=== PATIENT | male | born 1965 | race Caucasian/White ===

== ENCOUNTER 2017-11-18 12:31 | Emergency (ER) | payer SELFPAY ==
[2017-11-18] MEDS ORDERED: Ketorolac Tromethamine 60 MG/2 ML VIAL ONE (13:28)
[2017-11-18 13:32] LABS: Bilirubin Small (Negative); Blood, Urine Negative (Negative); Clarity CLEAR (Clear); Glucose, Urine (Dipstick) Negative (Negative); Leukocyte Small (Negative); Nitrite Negative (Negative); Protein, Urine (Dipstick) Trace mg/dL (Neg-Trace); Specific Gravity, Urine 1.033 (1.002-1.036); pH, Urine 5.5 (5.0-9.0)
[2017-11-18 13:34] LABS: Bacteria/HPF None Seen HPF (None Seen); Hyaline Casts/LPF 0-3 HYALINE CAST LPF (0-3 Hyaline); Pathc Cast-AUWi Flag 0.14 (0-2.49); RBC/HPF 0-3 HPF (0-3); Squamous Epithelial None Seen HPF (0-3); WBC/HPF 0-3 HPF (0-3)
[2017-11-18 13:46] LABS: Crystals/HPF 2+ CA OXALATE HPF (Negative)
== END 2017-11-18 13:52 | disposition home or self-care (01) ==
LOC: ERS 12:31
DX: M54.5 Low back pain (principal); I10 Essential (primary) hypertension
CPT/HCPCS: 81003; 81015; 96372; J1885

== ENCOUNTER 2019-05-13 17:58 | Emergency (ER) | payer SELFPAY | END 2019-05-13 19:13 | disposition left against medical advice (07) | LOC: ERS 17:58 | DX: Z53.21 Procedure and treatment not carried out due to patient leaving prior to being seen by health care provider (principal) ==

== ENCOUNTER 2019-10-04 18:34 | Observation (INO) | payer SELFPAY ==
[2019-10-04 19:54] LABS: #Basophils 0.1 thou/uL (0.0-0.2); #Eosinphils 0.1 thou/uL (0.0-0.7); #Lymphocytes 1.7 thou/uL (1.20-3.40); #Monocytes 0.5 thou/uL (0.11-0.59); #Neutrophils 4.8 thou/uL (1.40-6.50); %Eosinophils 1.6 % (0.0-10.0); %Lymphocytes 23.4 % (21.0-51.0); %Monocytes 6.5 % (0.0-10.0); %Neutrophils 67.5 % (42.0-75.0); Hemoglobin 15.7 g/dL (14.0-18.0); Mean Corpuscular HGB CONC 34.5 g/dL (32.0-36.0); Mean Corpuscular Hemoglobin 31.8 pg (27.0-31.0); Mean Corpuscular Volume 92.2 fL (78.0-98.0); Mean Platelet Volume 8.9 fL (7.4-10.4); Platelet Count 204 thou/uL (130-400); RBC Distribution Width 12.9 % (11.5-14.5); Red Blood Cell (RBC) Count 4.93 mill/uL (4.70-6.10); White Blood Cell (WBC) Count 7.2 thou/uL (4.8-10.8)
[2019-10-04 20:00] LABS: PTT 27.9 sec (22.9-36.1); Prothrombin Time 13.6 sec (12.0-14.7)
[2019-10-04] MEDS ORDERED: Aspirin Chewable 81 MG TAB ONE ×2 (20:10)
[2019-10-04 20:17] LABS: ALT (SGPT) 50 U/L (8-55); AST (SGOT) 37 U/L (5-34); Albumin 3.8 g/dL (3.5-5.0); Alkaline Phosphatase 92 U/L (40-110); Anion Gap 12 mmol/L (10-20); BUN (Urea Nitrogen) 14 mg/dL (8.4-25.7); Bilirubin, Total 1.2 mg/dL (0.2-1.2); CK (CPK) 89 U/L (30-200); Calc. Creatinine Clearance 0 mL/min (70-130); Carbon Dioxide 22 mmol/L (22-29); Chloride 111 mmol/L (98-107); Estimated GFR-MDRD 74; Globulin 3.5 g/dL (2.4-3.5); Glucose 90 mg/dL (70-105); Potassium 4.3 mmol/L (3.5-5.1); Protein, Total 7.3 g/dL (6.0-8.3); Sodium 141 mmol/L (136-145)
[2019-10-04] MEDS ORDERED: Acetaminophen 650 MG Suppository PR PRN (21:56)
[2019-10-04] MEDS ORDERED: Acetaminophen 325 MG TAB PO PRN (21:56)
[2019-10-04] MEDS ORDERED: Ondansetron ODT 4 MG TAB PO PRN (21:56)
[2019-10-04] MEDS ORDERED: Ondansetron PF 4 MG/2 ML Vial IVP PRN (21:56)
--- NOTE | 2019-10-04 22:46 | HP ---
TIME OF ASSESSMENT: 2100 hours. CHIEF COMPLAINT: Left hand weakness and numbness. PRIMARY CARE PHYSICIAN: None. HISTORY OF PRESENT ILLNESS: Mr. Armijo is a 54-year-old gentleman, who presents to the emergency department due to persisting numbness and weakness in the left hand. He states the numbness is involving only his first and second fingers. The weakness is affecting his entire hand, but much worse with those fingers. The patient has notable deformity to his left wrist and states he sustained multiple fractures to the wrist associated with bull riding in the past for which he did not seek medical attention and has never had any surgeries. The patient denies any recent trauma, falls, or injuries. He does do heavy lifting at work, but states he has not noted anything other than the ordinary chronic pain associated with his left upper extremity and back. The patient suffers from chronic left shoulder pain. He has not experienced any numbness or tingling elsewhere. Denies any speech disturbances or vision changes. No difficulty swallowing. No facial weakness or numbness. Has not had any other concerning symptoms. He initially presented to the emergency department yesterday and had been advised admission to the hospital for further workup; however, he refused and went home. After returning to work, he was told that he could not be back at work until he was medically cleared. Therefore, that prompted him to come back today. Yesterday, he had received 324 mg of aspirin. He had an EKG done showing normal sinus rhythm with a heart rate of 74. CT of the head done yesterday showed no acute intracranial abnormality. He was noted to have severe chronic small-vessel white matter ischemic changes. Laboratory studies were unremarkable except for elevated bilirubin of 2, AST of 36. Today, repeat laboratory studies show an AST of 37 and total bilirubin is normal. Labs otherwise were unremarkable. Yesterday, he also underwent a chest x-ray, which demonstrated no acute cardiopulmonary abnormality. While in the ER today, he has been given aspirin 324 mg, now being referred for further CVA workup. PAST MEDICAL HISTORY: 1. Hypertension. 2. Bipolar disorder. 3. Schizophrenia. 4. Former drug user. 5. History of alcohol abuse in the past. 6. Multiple fractures of the left wrist. 7. Chronic back pain. 8. Chronic left shoulder pain. PAST SURGICAL HISTORY: Reports undergoing back surgery in the past. SOCIAL HISTORY: As mentioned, he has a distant history of alcohol abuse and drug abuse, but denies both of these at present. He does smoke cigarettes daily. ALLERGIES: NO KNOWN DRUG ALLERGIES. CURRENT MEDICATIONS: Lisinopril 20 mg p.o. daily. PHYSICAL EXAMINATION: GENERAL: The patient appears well-developed, well-nourished, is in no acute distress. VITAL SIGNS: Temperature 98.1, pulse 69, blood pressure 169/85, respirations 17, O2 saturation 96% on room air. HEENT: Normocephalic and atraumatic. Pupils are equal, round, and reactive to light. Sclerae icterus. Oropharynx is clear. NECK: Supple. LUNGS: Clear to auscultation bilaterally without any wheezes, rales, or rhonchi. CARDIAC: Regular rate and rhythm. ABDOMEN: Soft, nontender, nondistended. Normal bowel sounds present. No guarding or rigidity. No renal angle tenderness. EXTREMITIES: No lower leg swelling or edema. NEUROLOGIC: Alert and oriented x3. Speech is normal. Facial movements normal. Facial sensation intact. Difficulty with fine motor function in the left hand. Pincer grasp is weak. Hand stock patcher strength is reduced. Weakness and numbness primarily involving the first and second fingers, obvious deformity of the left wrist. No obvious swelling or redness at present. The patient reports his had noted some slight erythema earlier in the week. Lower extremity with normal power and sensation. No other deficits on exam. SKIN: Warm and dry. INVESTIGATIONS: As mentioned above in HPI. IMPRESSION AND PLAN: Mr. Armijo is a 54-year-old gentleman presenting with weakness and numbness involving primarily the first and second fingers of the left hand with some generalized reduced strength in the entire left hand. Has history of multiple fractures to the left wrist with no notable swelling, erythema, or bruising. Denies any recent trauma, but does use his hand at work and does a lot of heavy lifting. This is the only area with neuro deficits on exam. The patient did have chronic ischemic type changes on the CT of the head. He is being admitted for cerebrovascular accident workup. We will obtain an echo, carotid Dopplers, MRI of the brain, and consult placed to Neuro. Given the fact that the numbness is isolated to the fingers and has remained constant since Tuesday, there is some possibility that it is more associated with the previous left wrist injuries. Therefore, we will obtain an MRI of the left wrist. He has a history of hypertension. We will resume lisinopril. Monitor his blood pressure. Continue aspirin and statin. Gastrointestinal prophylaxis with famotidine. Deep venous thrombosis prophylaxis with mechanical SCDs. The patient is ambulatory. Code status is full. His surrogate decision maker is his , Marilyn Armijo. Case discussed with attending, who agrees with plan of care as described above. Job ID: [id number]
[2019-10-04 23:16] VITALS: BMI 32.6
[2019-10-04 23:50] LABS: Troponin I Less than 0.010 ng/mL (< 0.028)
[2019-10-05 01:52] LABS: #Eosinphils 0.1 thou/uL (0.0-0.7); #Monocytes 0.5 thou/uL (0.11-0.59); #Neutrophils 3.7 thou/uL (1.40-6.50); %Basophils 0.5 % (0.0-1.0); %Eosinophils 2.2 % (0.0-10.0); %Lymphocytes 31.4 % (21.0-51.0); Hemoglobin 15.4 g/dL (14.0-18.0); Mean Corpuscular HGB CONC 33.9 g/dL (32.0-36.0); Mean Corpuscular Hemoglobin 31.2 pg (27.0-31.0); Mean Platelet Volume 9.3 fL (7.4-10.4); Platelet Count 177 thou/uL (130-400); RBC Distribution Width 12.8 % (11.5-14.5); Red Blood Cell (RBC) Count 4.92 mill/uL (4.70-6.10); White Blood Cell (WBC) Count 6.4 thou/uL (4.8-10.8)
[2019-10-05 02:20] LABS: Anion Gap 12 mmol/L (10-20); BUN (Urea Nitrogen) 14 mg/dL (8.4-25.7); Calc. Creatinine Clearance 115 mL/min (70-130); Calcium 8.8 mg/dL (7.8-10.44); Carbon Dioxide 23 mmol/L (22-29); Cardiac Risk 3.7 (Less than 4.5); Chloride 109 mmol/L (98-107); Cholesterol 118 mg/dl (< 200 Desired); Estimated GFR-MDRD 75; Glucose 123 mg/dL (70-105); HDL Cholesterol 32 mg/dL (>60 Neg Risk); LDL Cholesterol, Calculated 69 mg/dL; Potassium 3.7 mmol/L (3.5-5.1); Sodium 140 mmol/L (136-145); Triglycerides 87 mg/dL (Less than 150); Troponin I Less than 0.010 ng/mL (< 0.028)
--- NOTE | 2019-10-05 08:51 | ULT ---
BILATERAL CAROTID DUPLEX ULTRASOUND: Date: 10/04/2019 HISTORY: TIA, left hand weakness. FINDINGS: Real-time color Doppler evaluation of the right and left carotid systems was performed. This showed s ome minimal intimal thickening and plaque formation bilaterally. On the right side, peak systolic velocities of the common carotid were 80 cm/second. Internal carotid velocities were 80 cm/second and external carotid velocities were 94 cm/second. On the left side, peak systolic velocities of the common carotid were 98 cm/second. Internal carotid velocities were 125 cm/second with diastolic velocities of 44 cm/second, and external carotid veloci ties were 97 cm/second. Vertebral flow was antegrade bilaterally. IMPRESSION: No evidence of hemodynamically significant stenosis of the right internal carotid artery by NASCET cr iteria. There is 50-69% narrowing of the left internal carotid artery by peak systolic velocity and d iastolic measurement ratios would suggest less than 50% narrowing. POS: [facility]
[2019-10-05] MEDS ORDERED: Aspirin 81 mg Enteric Coated Tablet PO SCH (09:00)
[2019-10-05] MEDS ORDERED: Lisinopril 20 MG TAB PO SCH (09:00)
--- NOTE | 2019-10-05 09:27 | MRI ---
MRI BRAIN WITHOUT CONTRAST: Date: 10/05/2019 HISTORY: Left arm weakness. Stroke. FINDINGS: Correlation is made with the previous day's CT scan. Multiple foci of T2 prolongation in the periventricular white matter consistent with chronic small ve ssel ischemic disease is seen. There are a couple of small restricted diffusion seen in the right per iventricular white matter consistent with acute lacunar infarctions. The gradient echo sequences demo nstrate small foci of blooming consistent with hemosiderin deposition/remote hemorrhage. No evidence of acute transcortical infarct, acute hemorrhage, midline shift, or abnormal extra-axial fluid collections are seen. The ventricular size is appropriate and the basilar cisterns are patent. The visualized paranasal sinuses and mastoid air cells are well aerated. IMPRESSION: A couple of small acute lacunar infarctions in the right periventricular white matter. POS: [facility]
--- NOTE | 2019-10-05 10:02 | MRI ---
MR of the right wrist without IV contrast Technique: Multiplanar multisequence MR images were obtained of the left wrist without contrast HISTORY: Left wrist pain COMPARISON: No comparison FINDINGS: Bones: There is an ununited ulnar styloid process fracture. There is healed dorsally angulated fractu re deformity of the distal radial metaphyseal region. No acute fracture is evident. Ligaments: The scapholunate and lunotriquetral ligaments appear intact. The extrinsic ligaments appea r intact. Cartilage: There is moderate secondary osteoarthritic change of the left distal radius particularly i nvolving the dorsal aspect of the radiocarpal articular surface. There is moderate first CMC osteoarthrosis. There is scattered subchondral cystlike abnormalities involving the wrist carpus as w ell as the distal ulna suspicious for changes of healed erosions from prior inflammatory arthritis. Triangular fibrocartilage complex: There is some mild degenerative intrasubstance signal involving th e TFC with a small central perforation best seen on image 11 of series 7. There is suspicion for small undersurface tear along the dorsal aspect of the TFC best seen on image 10 of series 7 Tendons: The carpal tunnel is contents appear within normal limits. The FCU and FCR tendons appear wi thin normal limits. There is mild tendinosis of the ECU tendon. The remaining extensor tendons appear within normal limits. Median nerve: Appears within normal limits Visualized musculature: Appears within normal limits. Other findings: None IMPRESSION: 1. Posttraumatic and degenerative changes of the left wrist. There are scattered subchondral cystlike abnormalities involving the wrist carpus and distal ulna suspicious for healed erosions from prior inflammatory arthritis. 2. Degenerative intrasubstance signal of the TFC with a small partial-thickness undersurface tear inv olving the dorsal aspect of the TFC. 3. Mild ECU tendinosis
--- NOTE | 2019-10-05 12:11 | CON ---
NEUROLOGY CONSULTATION DATE OF CONSULTATION: 10/05/2019 REASON FOR CONSULTATION: Left hand weakness and paresthesias. HISTORY OF PRESENT ILLNESS: Mr. Armijo is a 54-year-old male with history significant for hypertension, schizophrenia, bipolar disorder, who presented to the emergency room with weakness and numbness of the left hand, which is more localized in the first and second fingers. The patient was unable to use the fingers. 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 He also has history of chronic back pain. The patient denies any focal numbness, focal paresthesias, nausea, vomiting, headache, chest pain, abdominal pain, vertigo, dizziness, blurred vision, loss of vision or loss of consciousness or abnormal body movements associated with the left hand numbness and weakness. He came to the emergency room, where he was given aspirin and CT scan of the head was done, which was negative for acute intracranial pathology. He also had chest x-ray, which did not reveal any acute cardiopulmonary abnormalities. REVIEW OF SYSTEMS: All 14 systems were reviewed and were negative except pertinent positives and negatives mentioned in the HPI. PAST MEDICAL HISTORY: Hypertension, schizophrenia, bipolar disorder, former history of drug and alcohol abuse, multiple fractures of the left wrist, chronic back pain, chronic left shoulder pain. PAST SURGICAL HISTORY: Back surgery and wrist surgery. SOCIAL HISTORY: The patient has a history of alcohol and drug abuse and he is also a smoker. ALLERGIES: NO KNOWN DRUG ALLERGIES. CURRENT MEDICATIONS: Lisinopril 20 mg daily. PHYSICAL EXAMINATION: GENERAL: The patient is well-developed male, in no acute distress. VITAL SIGNS: Blood pressure 160/80, pulse 80, respiratory rate 18. CVS: Regular rate and rhythm. CHEST: Clear. ABDOMEN: Soft. NECK: No carotid bruit. NEUROLOGIC: Mental status, the patient is alert and oriented to person, place, and time. Speech is clear. Fund of knowledge is appropriate. Recent and remote memory, intact. Cranial nerves 2 through 12, intact. Motor; muscle tone and bulk are normal. Strength 5/5 bilaterally except left wrist 4+/5. Sensory, decreased sensation to pinprick and light touch in the first and second fingers. Cerebellar, slow on the left. Gait deferred because of the patient's safety reasons. DATA REVIEWED: I reviewed the head CT, which was negative for acute intracranial pathology. I also reviewed the MRI of the brain, which showed small lacunar infarcts in the right periventricular white matter. Carotid Doppler shows left ICA stenosis 50% to 69%. Echo completed, but results are pending. ASSESSMENT AND PLAN: Mr. John Armijo is consulted for left wrist numbness and weakness. MRI of the brain reviewed, which was positive for small lacunar infarcts in the right periventricular white matter. Carotid Dopplers reviewed, which showed left ICA stenosis 50% to 69%. Consider cardiovascular surgery output. Neuro checks every 4 hours. Continue aspirin and high-intensity statin for secondary stroke prevention. 2D echo completed, results pending. Continue permissive control of blood pressure at this time. PT/OT. Telemetry. Continue medical management per primary team. Plan discussed in detail with the patient, primary attending Dr. Calero and with the floor team during the stroke rounds. We will continue to follow. Thank you for the consult. Job ID: [id number] [facility]
[2019-10-05 12:13] VITALS: BP 176/99; TEMP 98.2
--- NOTE | 2019-10-05 17:48 | DIS ---
DATE OF ADMISSION: 10/04/2019 DATE OF DISCHARGE: 10/05/2019 DISCHARGE DISPOSITION: To home. PRIMARY DISCHARGE DIAGNOSES: Left hand numbness, specifically the first and second fingers, to rule out transient ischemic attack; small lacunar infarcts in the right periventricular white matter. He has prior history of old lacunar infarcts in the left caudate nucleus and left sam in the past. Hypertension, schizoaffective disorder, chronic back pain. PROCEDURES DONE DURING HOSPITALIZATION: The patient has had left wrist MRI without IV contrast done showed findings of posttraumatic and degenerative changes of the left wrist. There are scattered subchondral cyst-like abnormalities involving the wrist carpus and distal ulna suspicious for healed erosions from prior inflammatory arthritis. There is degenerative intrasubstance signal of the TFC with a small partial thickness undersurface tear involving the dorsal aspect of the TFC, mild ECU tendinosis. MRI brain without contrast done showed findings suggestive of small lacunar infarct in the right periventricular white matter. Echo with 2D Doppler showed an ejection fraction of 50% to 55%. No obvious PFO, ASD, or intracardiac masses or thrombi seen. Carotid Doppler done showed findings suggestive of 50% narrowing in the left internal carotid artery. H and H 15 and 45, platelet count 177, MCV is 92. PT, INR, and PTT within normal limits. Total cholesterol 118, triglycerides 87, LDL 69, HDL 32. Troponin x3 negative. DISCHARGE MEDICATIONS: 1. Aspirin 81 mg p.o. daily. 2. Lipitor 40 mg p.o. at bedtime. 3. Lisinopril 20 mg p.o. daily. ALLERGIES: ALLERGIC TO COCONUT. DISCHARGE PLAN: The patient is to find a primary care physician in the local area or see the primary care physician at [facility] in 1 week. BRIEF COURSE DURING HOSPITALIZATION: The patient initially came in with complaints of left hand weakness and numbness. He specifically had numbness in the first and second fingers. Also, he has had prior hand injuries due to bull riding. He also does heavy lifting at work as well. In view of this history and prior history of lacunar infarcts with multiple risk factors, the patient was placed under observation on stroke unit. He has had complete neuro workup done including echo with 2D Doppler as well. The patient's carotid Doppler revealed left carotid 50 % stenosis, but the patient refused to wait for cardiothoracic and vascular surgical consultation. He has had an MRI brain done, which showed lacunar infarct in the periventricular white matter on the left side. MRI of the hand showed old traumatic injuries of the wrist as described above. He has remained hemodynamically stable, ambulating and eating well. He is wanting to go home. Please note, the patient is not on any medications for his schizoaffective disorder. The patient states he does not have any delusions or hallucinations now. He used to follow up at [facility] previously and has been advised to follow up with them in 1 week. He was placed on aspirin and Lipitor prior to discharge. He has had consultation with Dr. Menard for Neurology. Please note I have seen and examined the patient on the day of discharge. Job ID: [id number] [facility]
[2019-10-05] MEDS ORDERED: Atorvastatin Calcium 40 MG TAB PO SCH (21:00)
== END 2019-10-05 13:18 | disposition home or self-care (01) ==
LOC: ERS 18:34 → 2SE 21:18
PROVIDERS: ADMIT Internal Medicine; ATTEND Internal Medicine
DX: R53.1 Weakness (principal); R20.0 Anesthesia of skin; I10 Essential (primary) hypertension; F25.9 Schizoaffective disorder, unspecified; G89.29 Other chronic pain; M54.9 Dorsalgia, unspecified; M25.512 Pain in left shoulder; F31.9 Bipolar disorder, unspecified; F10.11 Alcohol abuse, in remission; F19.11 Other psychoactive substance abuse, in remission; F17.210 Nicotine dependence, cigarettes, uncomplicated; I65.22 Occlusion and stenosis of left carotid artery; Z86.73 Personal history of transient ischemic attack (TIA), and cerebral infarction without residual deficits; Z79.899 Other long term (current) drug therapy; Z91.018 Allergy to other foods
CPT/HCPCS: 36415; 70551; 80048; 80053; 80061; 82550; 84484; 85025; 85610; 85730; 93005; 93306; 93880; G0378

== ENCOUNTER 2020-04-14 14:45 | Outpatient (CLI) | payer OTHER ==
--- NOTE | 2020-04-14 15:11 | RAD ---
EXAM: XR Lumbar Spine 2 Or 3 View PROVIDED CLINICAL HISTORY: Disability exam. 06/06/2002 COMPARISON: 5 nonrib-bearing lumbar-type vertebral bodies are visualized. FINDINGS: Mild wedge-shaped compression fracture L1 vertebral body is seen. This was present on prior study in 2002. Remaining vertebral body heights are within normal limits. Scattered osteophytes are now seen within the lumbar spine with mild facet degenerative changes in the lower lumbar spine. No subluxatio n is present on this exam. Calcification overlies right hemipelvis difficult to further localize but may represent a vascular calcification. IMPRESSION: 1. Mild wedge-shaped compression fracture L1 vertebral body also present on study in 2002. No additio nal fracture seen involving the lumbar spine. There is no subluxation. 2. Scattered degenerative changes lumbar spine which have progressed compared to prior study. 3. Irregular calcification right hemipelvis which may represent a vascular calcification.
== END 2020-04-14 14:46 | disposition home or self-care (01) ==
LOC: BICRAD 14:45
PROVIDERS: ATTEND Internal Medicine
DX: Z02.71 Encounter for disability determination (principal); S32.010D Wedge compression fracture of first lumbar vertebra, subsequent encounter for fracture with routine healing; M47.816 Spondylosis without myelopathy or radiculopathy, lumbar region; M61.9 Calcification and ossification of muscle, unspecified
CPT/HCPCS: 72100

== ENCOUNTER 2020-09-01 00:44 | Emergency (ER) | payer SELFPAY ==
[2020-09-01] MEDS ORDERED: Propofol 1,000 MG/100 ML VIAL IV ONE (00:53)
[2020-09-01] MEDS ORDERED: levETIRAcetam 500 MG/100 ML PREMIX BAG ONE (00:53)
[2020-09-01] MEDS ORDERED: levETIRAcetam in NS 200 ML ONE (01:28)
[2020-09-01] MEDS ORDERED: niCARdipine 20MG In NaCl 20 MG/200 ML BAG ONE (01:36)
== END 2020-09-01 02:03 | disposition short-term general hospital (02) ==
LOC: ERS 00:44
DX: I62.9 Nontraumatic intracranial hemorrhage, unspecified (principal); I67.1 Cerebral aneurysm, nonruptured; Z86.73 Personal history of transient ischemic attack (TIA), and cerebral infarction without residual deficits
CPT/HCPCS: 51702; 96365; 96368; J1953; J2704